=== PATIENT | male | born 1955 | race Caucasian/White ===

== ENCOUNTER 2019-06-17 21:22 | Emergency (ER) | payer OTHER ==
[~2019-06-17] VITALS: Ht 182.9 cm; Wt 113.6 kg
[2019-06-17 21:32] VITALS: Ht 182.9 cm; Wt 113.6 kg
[2019-06-17] MEDS ORDERED: ACIDOPHILUS-PE1 EACH PO (21:34)
[2019-06-17] MEDS ORDERED: ACETAMINOPHEN325 MG PO (21:34)
[2019-06-17] MEDS ORDERED: ALBUTEROL SULF8.5 GM INH (21:34)
[2019-06-17] MEDS ORDERED: OPTIVE SENSITI1 EACH EACH EYE (21:35)
[2019-06-17] MEDS ORDERED: VOLTAREN100 GM (21:35)
[2019-06-17] MEDS ORDERED: COLACE100 MG PO (21:35)
[2019-06-17] MEDS ORDERED: AZELASTINE137 MCG/0. NASAL (21:35)
[2019-06-17] MEDS ORDERED: FOLIC ACID1 MG PO (21:35)
[2019-06-17] MEDS ORDERED: CYMBALTA30 MG PO (21:35)
[2019-06-17] MEDS ORDERED: MOBIC7.5 MG PO (21:36)
[2019-06-17] MEDS ORDERED: NEURONTIN 300300 MG PO (21:36)
[2019-06-17] MEDS ORDERED: CHRONULAC30 ML PO (21:36)
[2019-06-17] MEDS ORDERED: LASIX20 MG (21:36)
[2019-06-17] MEDS ORDERED: HYDROCHLOROTHIA25 MG PO (21:36)
[2019-06-17] MEDS ORDERED: MAG-OX 400 MG400 MG PO (21:36)
[2019-06-17] MEDS ORDERED: VIAGRA50 MG PO (21:37)
[2019-06-17] MEDS ORDERED: HYDROCODON-ACE1 EA10 PO (21:37)
[2019-06-17] MEDS ORDERED: MIRALAX17 GM PO (21:37)
[2019-06-17] MEDS ORDERED: OMEPRAZOLE20 M1 PO (21:37)
[2019-06-17] MEDS ORDERED: VITAMIN B-1100 M1 PO (21:38)
[2019-06-17] MEDS ORDERED: FLOMAX0.4 MG PO (21:38)
[2019-06-17 21:59] LABS: APPEARANCE CLEAR (CLEAR); BACTERIA FEW /hpf (NEGATIVE); BILIRUBIN NEGATIVE (NEGATIVE); COLOR YELLOW (YELLOW); GLUCOSE NEGATIVE (NEGATIVE); KETONE NEGATIVE (NEGATIVE); NITRITE NEGATIVE (NEGATIVE); PROTEIN TRACE mg/dL (NEGATIVE); RED CELLS - URINE OCC /hpf (0-5); SPECIFIC GRAVITY 1.025 (1.005-1.020); UROBILINOGEN NORMAL (NORMAL)
[2019-06-17 22:07] LABS: BASOPHILS 0.6 % (0-2); EOSINOPHILS 4.8 % (0-7); HEMATOCRIT 32.6 % (42.0-54.0); HEMOGLOBIN 9.9 g/dL (13.5-17.5); IMMATURE GRANULOCYTES 0.4 % (0-5); LYMPHOCYTES 27.7 % (15-50); MCH 24.5 pg (26.0-34.0); MCHC 30.4 g/dL (31.0-37.0); MCV 80.7 fL (80.0-100.0); MEAN PLATELET VOLUME 8.5 fL (7.4-10.4); MONOCYTES 7.9 % (2-11); NEUTROPHILS 58.6 % (40-80); PLATELET COUNT 196 10x3/uL (130-400); RBC 4.04 10x6/uL (4.20-6.10); RDW 15.5 % (11.5-14.5); WBC 7.1 10x3/uL (4.8-10.8)
[2019-06-17 22:07] LABS: UDS - AMPHET NEGATIVE QUAL (NEGATIVE); UDS - BARB NEGATIVE QUAL (NEGATIVE); UDS - BENZO POSITIVE QUAL (NEGATIVE); UDS - COCAINE NEGATIVE QUAL (NEGATIVE); UDS - OPIATE POSITIVE QUAL (NEGATIVE); UDS - PCP NEGATIVE QUAL (NEGATIVE); UDS - THC NEGATIVE QUAL (NEGATIVE)
[2019-06-17 22:14] LABS: CALC OSMOLALITY 273 mosm/kg (275-300); CALCIUM 8.8 mg/dL (8.5-10.1); CARBON DIOXIDE 27.8 mmol/L (21.0-32.0); CHLORIDE - SERUM 103 mmol/L (98-107); GLUCOSE 105 mg/dL (74-106); POTASSIUM - SERUM 3.8 mmol/L (3.5-5.1); SODIUM 137 mmol/L (136-145); UREA NITROGEN 13 mg/dL (7-18); eGFR NON AFRICAN AMERICAN 80 mL/min (90-120)
[2019-06-17 22:17] LABS: INR 1.19 (0.85-1.17); PROTIME 14.5 SECONDS (11.6-15.0)
[2019-06-17 22:32] LABS: ALBUMIN 3.2 g/dL (3.4-5.0); ALKALINE PHOSPHATASE 160 U/L (46-116); ALT (SGPT) 26 U/L (10-68); CKMB 3.8 U/L (0.0-3.6); CREATINE KINASE 769 UL (21-232); PROTEIN - SERUM 7.7 g/dL (6.4-8.2)
[2019-06-17 22:33] LABS: TROPONIN-I < 0.017 ng/mL (0.000-0.060)
[2019-06-18 00:20] VITALS: BP 115/72
== END 2019-06-18 00:20 | disposition other institution (70) ==
LOC: D.ER 21:22
PROVIDERS: Family Medicine
DX: F03.91 Unspecified dementia, unspecified severity, with behavioral disturbance (principal); G82.20 Paraplegia, unspecified

== ENCOUNTER 2019-06-28 11:59 | Emergency (ER) | payer OTHER ==
[~2019-06-28] VITALS: Ht 182.9 cm; Wt 72.7 kg
[~2019-06-28 11:59] MED LIST: ACETAMINOPHEN325 MG PO; ACIDOPHILUS-PE1 EACH PO; ALBUTEROL SULF8.5 GM INH; AZELASTINE137 MCG/0. NASAL; CHRONULAC30 ML PO; COLACE100 MG PO; CYMBALTA30 MG PO; FLOMAX0.4 MG PO; FOLIC ACID1 MG PO; HYDROCHLOROTHIA25 MG PO; HYDROCODON-ACE1 EA10 PO; LASIX20 MG; MAG-OX 400 MG400 MG PO; MIRALAX17 GM PO; MOBIC7.5 MG PO; NEURONTIN 300300 MG PO; OMEPRAZOLE20 M1 PO; OPTIVE SENSITI1 EACH EACH EYE; VIAGRA50 MG PO; VITAMIN B-1100 M1 PO; VOLTAREN100 GM
[2019-06-28 12:04] VITALS: Ht 182.9 cm; Wt 72.7 kg
[2019-06-28 13:21] VITALS: BP 155/96
== END 2019-06-28 13:00 | disposition other institution (70) ==
LOC: D.ER 11:59
DX: Z71.1 Person with feared health complaint in whom no diagnosis is made (principal); G62.9 Polyneuropathy, unspecified